=== PATIENT | female | born 1975 | race African-American/Black ===

== ENCOUNTER 2020-05-19 13:14 | Emergency (ER) | payer OTHER ==
[~2020-05-19] VITALS: Ht 167.6 cm; Wt 95.3 kg
[~2020-05-19 13:14] MED LIST: ACYCLOVIR 800800 MG PO; BCP; NORCO 5-325 TA1 EACH PO
[2020-05-19 14:12] LABS: ABSOLUTE NEUTROPHILS 1.4 thou/uL (1.4-8.2); BASOPHILS 1.2 % (0.0-2.0); EOSINOPHILS 3.5 % (0.0-3.0); HEMATOCRIT 41.9 % (37.0-47.0); HEMOGLOBIN 14.1 gm/dL (12.0-15.0); LYMPHOCYTES 47.6 % (24.0-44.0); MCH 34.2 pg (26.0-34.0); MCHC 33.7 g/dL (28.0-37.0); MCV 101.2 fL (80.0-100.0); MONOCYTES 7.6 % (1.0-8.0); POLYS 40.1 % (36.0-66.0); RBC 4.14 mil/uL (4.20-5.00); RDW 13.5 % (10.5-14.5); WBC 3.6 thou/uL (4.0-11.0)
[2020-05-19 14:23] LABS: ANION GAP 9 mmol/L (7-16); BUN 7 mg/dL (7-18); CALCIUM 9.4 mg/dL (8.5-10.1); CHLORIDE 102 mmol/L (98-107); CO2 26 mmol/L (21-32); CREATININE 0.9 mg/dL (0.6-1.0); GLUCOSE 95 mg/dL (74-106); POTASSIUM 3.4 mmol/L (3.5-5.1); SODIUM 137 mmol/L (136-145)
[2020-05-19 14:32] LABS: ALBUMIN 3.9 g/dL (3.4-5.0); SGOT 15 U/L (15-37); SGPT 18 U/L (14-59); TOTAL BILIRUBIN 0.6 mg/dL (0.2-1.0); TOTAL PROTEIN 8.2 g/dL (6.4-8.2); TROPONIN-I <0.06 ng/mL (<0.06)
[2020-05-19 15:16] LABS: PLATELET COUNT 166 thou/uL (150-400)
[2020-05-19] MEDS ORDERED: NAPROSYN500 MG PO (15:34)
[2020-05-19] MEDS ORDERED: VALIUM5 MG PO (15:34)
[2020-05-19] MEDS ORDERED: TYLENOL325 M1 PO (15:34)
[2020-05-19 15:59] VITALS: BP 146/102
--- NOTE | 2020-05-20 07:38 | EKG ---
[address] [place] [address] ELECTROCARDIOGRAM REPORT Name: NARDA SORTO [id number] Admission: 05/19/20 Attend Phys: Discharge: 05/19/20 Date of : 77 Report #: [id number] [facility] ED Test Date: 2020-05-19 Test Time: 14:12:00 Pat Name: NARDA SORTO Department: Room: Gender: F Steel Handler: UMM : 1975 Requested By: Ye Hill Order Number: [id number] MD: Abran Christensen Measurements Intervals [place] Rate: 91 P: 75 RI: 124 QRS: 86 QRSD: 96 T: 47 QT: 390 QTc: 480 Interpretive Statements Sinus rhythm Nonspecific T wave abnormality No previous ECG available for comparison Electronically Signed On 05-20-2020 7:38:43 [employer] by Abran Christensen [email or web address] <ELECTRONICALLY SIGNED> By: Abran Christensen MD, [facility] 05/20/20 0738 1412 1412 Abran Christensen MD, FACC /EPI
== END 2020-05-19 15:45 | disposition home or self-care (01) ==
LOC: ER 13:14
PROVIDERS: Emergency Medicine
DX: F41.9 Anxiety disorder, unspecified (principal); I10 Essential (primary) hypertension; M79.18 Myalgia, other site; F32.9 Major depressive disorder, single episode, unspecified; F17.210 Nicotine dependence, cigarettes, uncomplicated; Z79.899 Other long term (current) drug therapy